=== PATIENT | female | born 1965 | race African-American/Black ===

== ENCOUNTER 2018-04-15 20:10 | Emergency (ER) | payer MEDICAID ==
[~2018-04-15] VITALS: Ht 162.6 cm; Wt 60.8 kg
[2018-04-16] MEDS ORDERED: MORPHINE SULFATE 4 MG/ML CPJ (NOT FOR IM USE) IV ONE (02:45)
[2018-04-16 03:19] LABS: BASOPHILS % 1.1 % (0.0-2.0); EOSINOPHILS % 1.5 % (0.0-5.0); HEMATOCRIT. 38.4 % (36.0-48.0); HEMOGLOBIN. 13.3 g/dL (12.0-16.0); MEAN CORPUSCULAR HEMOGLOBIN 27.1 pg (28.0-32.0); MEAN CORPUSCULAR VOLUME 78.4 fL (81.0-99.0); MEAN PLATELET VOLUME 9.2 fl (7.4-10.4); MONOCYTES % 6.6 % (2.0-8.0); NEUTROPHILS % 41.8 % (40.0-76.0); PLATELET 241 x1000/uL (130-400); RED CELL DISTRIBUTION WIDTH 13.7 % (11.6-14.6)
[2018-04-16 03:27] LABS: CHLORIDE 106 mEq/L (98-107)
[2018-04-16 03:28] LABS: INR 1.1; PROTHROMBIN TIME 10.9 sec (9.4-11.6)
[2018-04-16 03:49] LABS: CLARITY URINE CLEAR (CLEAR); COLOR URINE DARK YELLOW (YELLOW); KETONES URINE TRACE (NEGATIVE); LEUKOCYTE ESTERASE URINE NEGATIVE (NEGATIVE); NITRITE URINE NEGATIVE (NEGATIVE); OCCULT BLOOD URINE NEGATIVE (NEGATIVE); PH URINE 5.5 (4.5-8.0); PROTEIN URINE NEGATIVE (NEGATIVE); SPECIFIC GRAVITY URINE 1.029 (1.005-1.030)
[2018-04-16 06:01] VITALS: BP 145/79
== END 2018-04-16 06:08 | disposition home or self-care (01) ==
LOC: ER 21:03
DX: K59.00 Constipation, unspecified (principal); F12.10 Cannabis abuse, uncomplicated; F17.200 Nicotine dependence, unspecified, uncomplicated
CPT/HCPCS: 36415; 80053; 81003; 81025; 83690; 85025; 85610; 96374; 99284; J2270

== ENCOUNTER 2024-07-01 21:42 | Emergency (ER) | payer OTHER ==
[~2024-07-01 21:42] MED LIST: AMLO10TA80 MT; CETI10TA11 MT; DOCU-15 MT; DYZ MT; FLUT16SP15 BOTHNSTRLS
[2024-07-01] MEDS: ASPIRIN 325MG TABLET PO ONE (22:30)
[2024-07-01 22:53] LABS: BASOPHILS % 0.6 % (0.0-2.0); EOSINOPHILS % 2.3 % (0.0-5.0); HEMOGLOBIN. 13.5 g/dL (12.0-16.0); LYMPHOCYTES % 43.3 % (20.0-50.0); MEAN CORPUSCULAR HEMOGLOBIN 27.1 pg (28.0-32.0); MEAN CORPUSCULAR HGB CONC 33.8 g/dL (31.0-37.0); MEAN PLATELET VOLUME 8.9 fl (7.4-10.4); MONOCYTES % 6.6 % (2.0-8.0); NEUTROPHILS % 47.2 % (40.0-76.0); PLATELET 266 x1000/uL (130-400); WHITE BLOOD COUNT 7.6 x1000/uL (4.5-11.0)
[2024-07-01 22:58] LABS: CHLORIDE 110 mEq/L (98-107); POTASSIUM 3.6 mEq/L (3.5-5.1); SODIUM 141 mEq/L (136-145)
[2024-07-01 22:59] LABS: CARBON DIOXIDE 27 mEq/L (21-32)
[2024-07-01 23:00] LABS: CALCIUM 10.7 mg/dL (8.7-10.4)
[2024-07-01 23:04] LABS: CREATININE 0.9 mg/dL (0.6-1.0); GLUCOSE 108 mg/dL (70-105); UREA NITROGEN BLOOD 11 mg/dL (9-23)
[2024-07-01 23:10] LABS: TROPONIN I HIGH SENSITIVITY 168 ng/L (3.0-34)
[2024-07-02 00:51] VITALS: BP 183/88; PULSE 60; RESP 18; TEMP 98.4; O2SAT 98
[2024-07-02 03:27] LABS: TROPONIN I HIGH SENSITIVITY 715 ng/L (3.0-34)
== END 2024-07-02 02:45 | disposition left against medical advice (07) ==
LOC: ER 21:42 → UNDOADMIN 23:37 → 5WST 23:37 → EDBEDREQ 23:42 → UNDODISIN 07-02 02:40 → CMPBEDREQ 07-02 02:45 → 5WST 07-02 02:45
DX: R07.9 Chest pain, unspecified (principal); R79.89 Other specified abnormal findings of blood chemistry; I10 Essential (primary) hypertension; F12.90 Cannabis use, unspecified, uncomplicated; Z90.710 Acquired absence of both cervix and uterus
CPT/HCPCS: 80048; 85025; 84484 ×2; 36415 ×2; 71045; 93005; 99291; Z7610 ×2